=== PATIENT | female | born 1980 | race Caucasian/White ===

== ENCOUNTER 2017-03-15 18:44 | Observation (INO) ==
[2017-03-15] MEDS ORDERED: Ondansetron 4 MG/2 ML VIAL IVP ONE (19:06)
[2017-03-15] MEDS ORDERED: 0.9 % Sodium Chloride 1,000 ML IVC ONE (19:06)
--- NOTE | 2017-03-15 19:10 | Emergency Department Note ---
Disposition Clinical Impression: Intractable vomiting Qualifiers: Vomiting type: cyclical vomiting Nausea presence: with nausea Qualified Code(s) : G43.A1 - Cyclical vomiting, intractable Disposition: Admitted As Inpatient Condition: Good Referrals: Karson Romero DO [Primary Care Provider] - Forms: ED Satisfaction Letter Time of Disposition: 21:49 Nausea/Vomiting/Diarrhea HPI - General Chief complaint: ED Nausea/Vomiting/Diarrhea Stated complaint: vomiting Time Seen by Provider: 03/15/17 18:50 Source: patient Limitations: no limitations Nursing Notes Reviewed: Yes Vital Signs Reviewed: Yes - History of Present Illness HPI Narrative: 36-year-old female who comes in with multiple episodes of nausea vomiting. Patient was seen here 2 days ago for similar complaints and was worked up noted to have a white count of 25.2 was instructed to follow up for recheck of her white count area CT scan was negative for acute findings. Patient does smoke marijuana routinely and it was felt she may have cyclic vomiting syndrome although she's never had that in the past. Pt Subjective Complaint: nausea, vomiting Onset (ago): day(s) Description of emesis: food contents Associated Abdominal Pain: Yes If pain, Location of pain: diffuse Consistency: constant Improves with: nothing Worsens with: vomiting Context: foreign travel Associated symptoms: Reports: myalgias - Related Data Previous Rx's Medication Instructions Recorded Oxycodone HCl/Acetaminophen 1 each PO Q6H PRN #50 tablet 10/14/16 [Percocet 5-325 mg Tablet] HYDROcodone/Acet 5/325 mg [[place] 1 tab PO Q6H PRN #10 tab 11/16/16 5-325 mg] Ondansetron ODT [Zofran ODT] 4 mg SL Q6HR #10 tab.rapdis 11/16/16 Ondansetron ODT [Zofran ODT] 4 mg SL Q4HR #10 tab.rapdis 03/13/17 Promethazine [Phenergan] 12.5 mg RC Q4HR #10 supp.rect 03/13/17 Allergies Allergy/AdvReac Type Severity Reaction Status Date / Time codeine AdvReac Headache Verified 03/13/17 18:02 Penicillins AdvReac Vomiting Verified 03/13/17 18:02 Constitutional: Denies: fever, chills, weakness, weight change Eyes: Denies: eye pain, eye discharge, vision change ENT ED: Denies: ear pain, throat pain, dental pain, hearing loss, epistaxis, congestion, dysphagia Cardiovascular: Denies: chest pain, palpitations, dyspnea on exertion, edema, syncope Respiratory: Denies: cough, dyspnea, wheezes, hemoptysis, stridor Gastrointestinal: Reports: abdominal pain, nausea, vomiting. Denies: diarrhea, constipation, hematemesis, melena, hematochezia Genitourinary: Denies: dysuria, frequency, hematuria, discharge Musculoskeletal: Denies: back pain, neck pain, arthralgia, myalgia Integumentary: Denies: rash, abrasion, lesions Neurological: Denies: headache, weakness, numbness, paresthesias, confusion, abnormal gait, vertigo Psychiatric: Denies: anxiety, depression, suicidal thoughts, homicidal thoughts , auditory hallucinations, visual hallucinations Endocrine: Denies: fatigue Hematological/Lymphatic: Denies: easy bleeding, easy bruising Allergic/Immunologic: Denies: facial swelling, urticaria Past Medical History - Past Medical History Medical history: Reports: no medical history Surgical history: Reports: other Psychiatric history: Reports: ADHD - Social History Smoking Status: Current every day smoker Smokeless Tobacco Status: No Alcohol use: Reports: occasionally Drug use: Reports: marijuana Physical Exam - General Limitations: no limitations General appearance: alert - Head Head exam: atraumatic, normocephalic, normal inspection - Eye Eye exam: Present: normal appearance, PERRL, EOMI - ENT ENT exam: normal exam, normal oropharynx, mucous membranes moist - Neck Neck exam: Present: normal inspection, full ROM, trachea midline - Chest Chest inspection: Present: normal inspection, symmetric chest wall rise - Respiratory Respiratory exam: Present: normal lung sounds bilaterally - Cardiovascular Cardiovascular exam: Present: regular rate, normal rhythm, normal heart sounds - Abdominal Exam Abdominal exam: Present: soft, tenderness. Absent: distention, guarding, rebound, rigidity Abdominal tenderness: Present: diffuse - Extremities Exam Extremities exam: Present: normal inspection, full ROM. Absent: tenderness, pedal edema - Expanded Lower Extremity Exam Neurovascular/Tendon exam: Absent: motor deficit, sensory deficit, tendon deficit - Back Exam Back exam: Present: normal inspection, full ROM. Absent: tenderness - Neurological Exam Neurological exam: Present: alert, oriented X3 - Psychiatric Psychiatric exam: Present: normal affect, normal mood - Skin Skin exam: Present: warm, dry, intact, normal color Course - Reevaluation(s) Reevaluation #1: 36-year-old with persistent nausea vomiting. There is a question whether this is related to cyclic vomiting syndrome. She does have an elevated white count but doesn't appear to have a focus of infection. White count slightly better than it was previously down from 25,000 to about 22,000. Time: 21:48 - Consultations Consultation #1: Discussed with , admit. Time: 21:49 Vital Signs Temperature 98.3 F 03/15/17 18:45 Pulse Rate 64 03/15/17 18:45 Respiratory Rate 16 03/15/17 18:45 Blood Pressure 156/89 03/15/17 18:45 O2 Sat by Pulse Oximetry 100 03/15/17 18:45 Temperature 98.3 F 03/15/17 18:45 Pulse Rate 60 03/15/17 19:24 Respiratory Rate 16 03/15/17 18:45 Blood Pressure 166/96 03/15/17 19:24 O2 Sat by Pulse Oximetry 100 03/15/17 18:45 Oxygen Delivery Oxygen Delivery Room Air Nausea/Vomiting/Diarrhea - Lab Data Result diagrams: 03/15/17 19:17 03/15/17 19:17 Lab Results 03/15/17 03/15/17 03/15/17 Range/Units 19:16 19:17 19:17 WBC 22.4 H (4.3-11.1) K/mcL RBC 5.04 H (3.82-4.97) M/mcL Hgb 15.0 (11.5-15.4) g/dL Hct 44.2 (35.3-44.9) % MCV 87.7 (83.0-100.0) fL MCH 29.8 (28.0-33.3) pg MCHC 33.9 (31.6-35.5) g/dL RDW 13.7 (11.5-14.5) % Plt Count 442 H (140-400) K/mcL MPV 8.3 L (9.4-12.4) fL Immature Gran % 0.7 (0-4) % Seg Neutrophils % 80.6 % Lymphocytes % 13.2 % Monocytes % 5.1 % Eosinophils % 0.0 % Basophils % 0.4 % Neutrophils # 18.0 H (1.6-8.9) K/mcL Lymphocytes # 3.0 (0.6-4.6) K/mcL Monocytes # 1.2 (0.0-1.3) K/mcL Eosinophils # 0.0 (0.0-0.6) K/mcL Basophils # 0.1 (0.0-0.2) K/mcL Sodium 135 L (136-145) mEq/L Potassium 3.4 L (3.5-5.1) mEq/L Chloride 101 (98-107) mEq/L Carbon Dioxide 22 L (23-29) mEq/L BUN 10 (6-20) mg/dL Creatinine 0.58 L (0.60-1.20) mg/dL Est GFR ( Amer) > 60 (> 60) Est GFR (Non-Af Amer) > 60 (> 60) BUN/Creatinine Ratio 17 (6-26) Glucose 100 (70-105) mg/dL Calculated Osmolality 279 L (280-300) Calcium 9.4 (8.6-10.3) mg/dL Lipase 15 (11-82) Units/L Urine Color Yellow (Yellow) Urine Clarity Turbid A (Clear) Urine pH 7.5 (5.0-8.0) pH Units Ur Specific [place] 1.022 (1.010-1.025) Urine Protein Trace (Neg-Trace) mg/dL Urine Glucose (UA) Normal (Normal) mg/dL Urine Ketones 80 H (Negative) mg/dL Urine Blood Negative (Negative) Urine Nitrite Negative (Negative) Urine Bilirubin Negative (Negative) Urine Urobilinogen Normal (Normal) mg/dL Ur Leukocyte Esterase Negative (Negative) Urine Microscopic RBC 0-3 (0-3) per hpf Urine Microscopic WBC 0-3 (0-3) per hpf Ur Squamous Epith Cells Many H (None-Few) per lpf Amorphous Sediment Moderate H (Few) Urine Bacteria None Seen (None-Few) per hpf Hyaline Casts None Seen (None-Few) per lpf Urine Yeast Test Not Performed Ur Culture Indicated? NO (NO)
[2017-03-15 19:23] LABS: Basophils # 0.1 K/mcL (0.0-0.2); Basophils % 0.4 %; Hematocrit 44.2 % (35.3-44.9); Immature Granulocytes % 0.7 % (0-4); Lymphocytes % 13.2 %; Mean Corpuscular HGB Conc 33.9 g/dL (31.6-35.5); Mean Corpuscular Hemoglobin 29.8 pg (28.0-33.3); Mean Corpuscular Volume 87.7 fL (83.0-100.0); Mean Platelet Volume 8.3 fL (9.4-12.4); Monocytes # 1.2 K/mcL (0.0-1.3); Monocytes % 5.1 %; Platelet Count 442 K/mcL (140-400); Red Blood Count 5.04 M/mcL (3.82-4.97); Red Cell Distribution Width 13.7 % (11.5-14.5); Segmented Neutrophils % 80.6 %
[2017-03-15 19:33] LABS: Bilirubin,Urine Negative (Negative); Blood,Urine Negative (Negative); Clarity,Urine Turbid (Clear); Color,Urine Yellow (Yellow); Glucose,Urine (UA) Normal (Normal); Ketones,Urine 80 mg/dL (Negative); Leukocyte Esterase,Urine Negative (Negative); Nitrite,Urine Negative (Negative); PH,Urine 7.5 pH Units (5.0-8.0); Protein,Urine Trace mg/dL (Neg-Trace); Specific Gravity,Urine 1.022 (1.010-1.025); Urobilinogen,Urine Normal (Normal)
[2017-03-15 19:34] LABS: Bacteria,Urine None Seen per hpf (None-Few); Hyaline Casts,Urine None Seen per lpf (None-Few); RBC,Urine 0-3 per hpf (0-3); Squamous Epithelial Cell,Urine Many per lpf (None-Few); WBC,Urine 0-3 per hpf (0-3)
[2017-03-15 19:36] LABS: BUN/Creatinine Ratio 17 (6-26); Blood Urea Nitrogen 10 mg/dL (6-20); Calcium 9.4 mg/dL (8.6-10.3); Carbon Dioxide 22 mEq/L (23-29); Chloride 101 mEq/L (98-107); Glucose 100 mg/dL (70-105); Lipase 15 Units/L (11-82); Osmolality,Calculated 279 (280-300); Potassium 3.4 mEq/L (3.5-5.1); Sodium 135 mEq/L (136-145); eGFR For African Americans > 60 (> 60); eGFR For Non-African Americans > 60 (> 60)
[2017-03-15 19:51] LABS: Amorphous Sediment,Urine Moderate (Few)
[2017-03-15] MEDS ORDERED: Haloperidol Lactate 5 MG/ML VIAL IVP ONE (21:07)
[2017-03-15] MEDS ORDERED: 0.9 % Sodium Chloride 1,000 ML IVC SCH (23:45)
[2017-03-15] MEDS ORDERED: *HR* Promethazine 25 MG/ML VIAL IVP PRN (23:49)
[2017-03-15] MEDS ORDERED: Naloxone 0.4 MG/ML INJ IVP PRN (23:49)
[2017-03-15] MEDS ORDERED: Ondansetron ODT 4 MG TAB.RAPDIS SL PRN (23:49)
--- NOTE | 2017-03-15 23:52 | Internal Med History&Physical ---
<Murali Aldrich - Last Filed: 03/16/17 00:09> Date of Encounter: 03/16/17 Time of Encounter: 23:00 Assessment and Plan (1) Intractable vomiting Current visit: Yes Status: Acute Refractory to Zofran 4mg, Phenergan 12.5mg. Pt responded to Haldol 2mg, consistent with last encounter 2 days ago. Will keep NPO except for ice chips, with normal saline at 100mL/hr. Will monitor for EPS symptoms, holding Haldol unless pt symptoms worsen without resolution with Zofran/Phenergan overnight. Discussed consideration for cannabinoid hyperemesis with patient. Qualifiers: Vomiting type: cyclical vomiting Nausea presence: with nausea Qualified Code(s): G43.A1 - Cyclical vomiting, intractable (2) Leukocytosis Current visit: Yes Status: Acute CBC with differential shows neutrophil predominant leukocytosis. Likely stress reaction to vomiting. Leukocytosis has been documented in multiple visits, this may be due to each visit pt having an physiologically appropriate leukemoid reaction, however will order peripheral smear. (3) DVT prophylaxis Current visit: Yes Status: Acute SQ heparin 5000U q12H. Internal Medicine - H&P: HPI Admitted From: Emergency Dept Plans for Post Hospital Care: Home History of present illness: Ms. Lanier is a 36 year old female who presents to ED with nausea and multiple episodes of vomiting. Pt seen in ED 2 days ago for similar symptoms, vomiting refractory to zofran and phenergan, with resolution of symptoms after receiving 2mg Haldol. Pt currently denies tremor, or irregular jerking movements. She states this is the first time she has had unremitting vomiting. ED workup shows white count of 22 down from 25, negative CT abdomen and CXR. Pt received zofran and phenergan, pt did not respond so haldol 2mg was given. Pt has stopped vomitting for 3 hours since haldol administration at the time of this encounter. Past Med Surg Social Fam HX - Past Medical History Medical history: no medical history Psychiatric history: ADHD - Past Surgical History Surgical History: other - Social History Smoking Status: Current every day smoker Smokeless Tobacco Status: No Alcohol use: occasionally Drug use: marijuana Internal Medicine - H&P: Meds Oxycodone HCl/Acetaminophen [Percocet 5-325 mg Tablet] 1 each PO Q6H PRN #50 tablet 10/14/16 [Rx] HYDROcodone/Acet 5/325 mg [[place] 5-325 mg] 1 tab PO Q6H PRN #10 tab 11/16/16 [Rx ] Ondansetron ODT [Zofran ODT] 4 mg SL Q6HR #10 tab.rapdis 11/16/16 [Rx] Ondansetron ODT [Zofran ODT] 4 mg SL Q4HR #10 tab.rapdis 03/13/17 [Rx] Promethazine [Phenergan] 12.5 mg RC Q4HR #10 supp.rect 03/13/17 [Rx] 3 Allergy/AdvReac Type Severity Reaction Status Date / Time codeine AdvReac Headache Verified 03/13/17 18:02 Penicillins AdvReac Vomiting Verified 03/13/17 18:02 All Systems PM: A 10-system review of systems was performed and is negative for pertinent findings except as documented above in the HPI. - Constitutional Vitals: Temp Pulse Resp BP Pulse Ox 98.3 F 60 18 112/69 100 03/15/17 18:45 03/15/17 19:24 03/15/17 23:23 03/15/17 23:23 03/15/17 18:45 General appearance: Present: A&O X 3, no acute distress - ENT ENT exam: Present: mucous membranes moist - Neck Neck exam general surgery: Present: full ROM. Absent: nuchal rigidity - Cardiovascular Cardiovascular exam: Present: RRR, +S1, +S2. Absent: tachycardia - Neurological Exam Neurological exam: Present: no focal deficits Additional comments: no tremor, bradykinesia, or akathisia - Psychiatric Psychiatric exam: Present: normal affect Internal Med - H&P Results - Labs CBC & Chem 7: 03/15/17 19:17 03/15/17 19:17 <Nicolette Osullivan - Last Filed: 03/16/17 01:54> Date of Encounter: 03/16/17 Time of Encounter: 01:00 Internal Medicine - H&P: HPI Chief complaint: Intractable vomiting Admitted From: Emergency Dept Plans for Post Hospital Care: Home History of present illness: Ms. Lanier is a 36 year old female All Systems PM: A 10-system review of systems was performed and is negative for pertinent findings except as documented above in the HPI. - Constitutional Vitals: Temp Pulse Resp BP Pulse Ox 98.0 F 54 20 119/76 95 03/15/17 23:52 03/15/17 23:52 03/15/17 23:52 03/15/17 23:52 03/15/17 23:52 Internal Med - H&P Results - Labs CBC & Chem 7: 03/15/17 19:17 03/15/17 19:17 - Attending Attestation I examined this patient and my medical decision-making was reviewed with the Resident Physician, Murali Aldrich. I agree with the documented findings, disposition and treatment plan as described except to the extent set forth below. 36-year-old female patient with no significant past medical history presented to the ER with complaints of intractable nausea and vomiting going on for 3 days. Was previously seen in the ER and was discharged home with Zofran and Phenergan. No improvement in her symptoms since then. Has history of chronic marijuana use. Also reports minimal blood in her emesis. Complains of epigastric abdominal discomfort. Patient says that she has previously had C. difficile but does not report any diarrhea at this time. On examination patient is awake alert and oriented. Heart sounds are normal. Mild epigastric tenderness. Labs show hypokalemia and hyponatremia. Ketones present in urine. Intractable nausea and vomiting: Concern for cannabinoid hyperemesis syndrome. Will treat symptomatically with antiemetics. IV fluids. Replete electrolytes. Leukocytosis: Patient has had chronic leukocytosis. Neutrophil predominant. Will check peripheral smear.
[2017-03-16] MEDS ORDERED: 0.9 % Sodium Chloride w KCl 20 MEQ/1,000 ML MLS IVC SCH (02:00)
[2017-03-16 06:37] LABS: Basophils # 0.1 K/mcL (0.0-0.2); Basophils % 0.7 %; Eosinophils # 0.1 K/mcL (0.0-0.6); Eosinophils % 0.6 %; Hematocrit 35.6 % (35.3-44.9); Immature Granulocytes % 0.4 % (0-4); Lymphocytes # 5.8 K/mcL (0.6-4.6); Lymphocytes % 32.2 %; Mean Corpuscular Hemoglobin 29.7 pg (28.0-33.3); Mean Corpuscular Volume 87.5 fL (83.0-100.0); Mean Platelet Volume 8.8 fL (9.4-12.4); Monocytes # 1.4 K/mcL (0.0-1.3); Monocytes % 7.9 %; Neutrophils # 10.5 K/mcL (1.6-8.9); Platelet Count 360 K/mcL (140-400); Red Blood Count 4.07 M/mcL (3.82-4.97); Red Cell Distribution Width 13.8 % (11.5-14.5); Segmented Neutrophils % 58.2 %
[2017-03-16 06:38] LABS: Hemoglobin 12.1 g/dL (11.5-15.4)
[2017-03-16 06:44] LABS: BUN/Creatinine Ratio 17 (6-26); Blood Urea Nitrogen 9 mg/dL (6-20); Calcium 8.5 mg/dL (8.6-10.3); Carbon Dioxide 25 mEq/L (23-29); Chloride 108 mEq/L (98-107); Glucose 75 mg/dL (70-105); Osmolality,Calculated 285 (280-300); Potassium 3.3 mEq/L (3.5-5.1); Sodium 139 mEq/L (136-145); eGFR For African Americans > 60 (> 60); eGFR For Non-African Americans > 60 (> 60)
[2017-03-16 12:54] VITALS: BP 144/88
--- NOTE | 2017-03-16 16:04 | Discharge Summary ---
Date of Encounter: 03/16/17 Time of Encounter: 16:02 - Discharge Diagnosis (1) Intractable vomiting Priority: Primary Status: Resolved Comments: refractory to Zofran 4mg, Phenergan 12.5mg. Pt responded to Haldol 2mg, consistent with last encounter 2 days ago. Stool for c.diff negative. ABD CT non-acute. Nausea and vomiting resolved prior to discharge and she was tolerating regular diet. Differentials include gastro-enteritis, cannabinoid hyperemesis. Marijuana cessation advised but not likely. Qualifiers: Vomiting type: cyclical vomiting Nausea presence: with nausea Qualified Code(s): G43.A1 - Cyclical vomiting, intractable (2) Leukocytosis Priority: Primary Status: Acute Comments: CBC with differential shows neutrophil predominant leukocytosis. Likely stress reaction to vomiting. Leukocytosis has been documented in multiple visits, may be due to each visit pt having a physiologically appropriate leukemoid reaction ; peripheral smear pending at time of discharge. Recommend repeat CBC with PCP in one week Qualifiers: Leukocytosis type: leukemoid reaction Qualified Code(s): D72.823 - Leukemoid reaction - Discharge Medications Home Medications: Ondansetron ODT [Zofran ODT] 4 mg SL Q4HR #10 tab.rapdis 03/13/17 [Rx] Promethazine [Phenergan] 12.5 mg RC Q4HR #10 supp.rect 03/13/17 [Rx] FLUoxetine HCl [PROzac] 20 mg PO DAILY 03/16/17 [History] Propranolol [Inderal] 20 mg PO BID 03/16/17 [History] Allergies/Adverse Reactions: 3 Allergy/AdvReac Type Severity Reaction Status Date / Time codeine AdvReac Headache Verified 03/13/17 18:02 Penicillins AdvReac Vomiting Verified 03/13/17 18:02 Date of admission: 03/15/17 22:10 Primary care physician: Karson Romero DO Discharging clinician: Joellen Reyes Anticipated date of discharge: 03/16/17 - Patient Status Disposition: Home, Self-Care Condition: Good Functional capacity at discharge: independent ambulation Overall status at discharge: patient is back to baseline - Discharge Instructions Instructions: Leukocytosis (DC), Acute Nausea and Vomiting, Residential Director ( GEN) Follow Up With: Karson Romero DO [Primary Care Provider] - (Please call for follow-up appointment within 24 hours or the next business day. You should have a repeat CBC within a week. Please also follow up with the peripheral blood smear that was pending at time of discharge) - Diet and Activity Activity: increase activity as tolerated Diet: advance to your usual diet Interval History: Seen and examined at bedside, patient is new to me. Information obtained from chart review and patient report. Patient says she feels significantly better; no further nausea vomiting. She is tolerating a regular diet. She reports having surgery a couple months ago and subsequently had C. difficile. She feels symptoms now are similar to when she had C. difficile. Stool checked for C. difficile which was negative. Patient said she was back to baseline and wanted discharged home. Advised to follow-up with PCP for repeat CBC and peripheral smear follow-up. Hospital course: See assessment and plan for hospital course - Time Spent with Patient Total time spent providing and/or coordinating discharge services: - Constitutional Vitals: Temp Pulse Resp BP Pulse Ox 99.3 F 77 18 144/88 100 03/16/17 12:53 03/16/17 12:53 03/16/17 12:53 03/16/17 12:53 03/16/17 12:53 General appearance: Present: A&O X 3, no acute distress - Head Head exam: Present: atraumatic, normocephalic - Eye Eye exam: Present: PERRL, conjuntiva pink, sclera anicteric Pupils: Present: PERRL - Neck Neck exam general surgery: Present: supple, trachea midline. Absent: lymphadenopathy - Respiratory Respiratory exam: Present: CTAB. Absent: accessory muscle use, rales, rhonchi, wheezes - Cardiovascular Cardiovascular exam: Present: RRR, +S1, +S2. Absent: diastolic murmur, gallop, rubs, systolic murmur - GI/Abdominal GI/Abdominal exam: Present: normal bowel sounds, soft, no peritoneal signs. Absent: distended, tenderness - Extremities Exam Extremities exam: Present: warm, radial pulses palpable and symmetrical. Absent : calf tenderness, cyanotic, pedal edema - Neurological Exam Neurological exam: Present: CN II-XII intact, oriented X3, no focal deficits. Absent: pronater drift, facial droop, speech deficit - Skin Skin exam: Present: dry, intact
== END 2017-03-16 16:26 | disposition home or self-care (01) ==
LOC: 3BNU 18:44 → EMEROO 18:44 → 3BNU 23:26
PROVIDERS: ADMIT Family Medicine; ATTEND Registered Nurse

== ENCOUNTER 2017-06-01 17:22 | Inpatient (IN) ==
[2017-06-01] MEDS ORDERED: 0.9 % Sodium Chloride 1,000 ML IVC ONE ×2 (18:08→19:46)
[2017-06-01] MEDS ORDERED: *HR* Promethazine 25 MG/ML VIAL IVP ONE (18:09)
[2017-06-01] MEDS ORDERED: Hyoscyamine 0.5 MG/ML MLS IVP ONE (18:10)
[2017-06-01] MEDS ORDERED: Pantoprazole 40 MG VIAL IVP ONE (18:10)
--- NOTE | 2017-06-01 18:14 | Emergency Department Note ---
Disposition Clinical Impression: Esophagitis, Elevated troponin Sepsis Qualifiers: Sepsis type: sepsis due to unspecified organism Qualified Code(s): A41.9 - Sepsis, unspecified organism Disposition: Admitted As Inpatient Condition: Fair Time of Disposition: 20:46 General Adult HPI - General Chief complaint: ED General Medical Stated complaint: N/V, low BS, CP Time Seen by Provider: 06/01/17 17:49 Source: patient Mode of arrival: ambulatory Limitations: no limitations Nursing Notes Reviewed: Yes Vital Signs Reviewed: Yes - History of Present Illness HPI Narrative: 36-year-old female with history of anxiety depression presents for evaluation of multiple complaints. Patient states she has been having nausea and vomiting for the past 3 days. Denies any diarrhea. Patient also notes some chest pain over the past 3 days as well. Denies any shortness of breath. Patient states she aches everywhere. Patient states that she has not been able to keep anything down with Zofran. Patient does report subjective fevers. Patient also became concerned when she checked her blood sugars she said it was 50. Patient denies having history of diabetes or taking any medications. Patient reports that she has had her gallbladder removed. Denies any dysuria. Patient denies possibility . Pain Scale: 8 - Related Data Home Medications Medication Instructions Recorded Confirmed FLUoxetine HCl [PROzac] 20 mg PO DAILY 03/16/17 03/16/17 Propranolol [Inderal] 20 mg PO BID 03/16/17 03/16/17 Previous Rx's Medication Instructions Recorded Ondansetron ODT [Zofran ODT] 4 mg SL Q4HR #10 tab.rapdis 03/13/17 Promethazine [Phenergan] 12.5 mg RC Q4HR #10 supp.rect 03/13/17 Allergies Allergy/AdvReac Type Severity Reaction Status Date / Time codeine AdvReac Headache Verified 03/13/17 18:02 Penicillins AdvReac Vomiting Verified 03/13/17 18:02 All systems ED: reviewed and negative except as stated. Constitutional: Reports: fever Cardiovascular: Reports: chest pain. Denies: palpitations Respiratory: Denies: cough, dyspnea, wheezes Gastrointestinal: Reports: abdominal pain, nausea, vomiting. Denies: diarrhea Past Medical History - Past Medical History Source: patient Medical history: Reports: no medical history Surgical history: Reports: other Psychiatric history: Reports: anxiety, ADHD, depression - Social History Smoking Status: Current every day smoker Smokeless Tobacco Status: No Alcohol use: Reports: occasionally Drug use: Reports: marijuana Physical Exam - General Limitations: no limitations General appearance: alert, in no apparent distress - Head Head exam: atraumatic, normocephalic, normal inspection - Eye Eye exam: Present: normal appearance, PERRL, EOMI - ENT ENT exam: normal exam, normal oropharynx, mucous membranes moist - Neck Neck exam: Present: normal inspection - Chest Chest inspection: Present: normal inspection - Respiratory Respiratory exam: Present: normal lung sounds bilaterally. Absent: respiratory distress - Cardiovascular Cardiovascular exam: Present: regular rate, normal rhythm - Abdominal Exam Abdominal exam: Present: soft, Non-Tender. Absent: distention, guarding, rebound - Extremities Exam Extremities exam: Present: normal inspection. Absent: pedal edema - Expanded Lower Extremity Exam Neurovascular/Tendon exam: Present: normal capillary refill - Neurological Exam Neurological exam: Present: alert, oriented X3 - Skin Skin exam: Present: warm, dry, intact, normal color Course Course Narrative: Patient will get basic labs, screening EKG. Patient is low risk for PE however has remained tachycardic. Patient will receive a d-dimer. - Reevaluation(s) Reevaluation #1: During the ED evaluation the patient's heart rate did increase in the 150s. Considers a sinus tach versus atrial flutter. It is unclear whether this was readily correlated with administration of medications. Patient does take propranolol. Patient will be treated with Lopressor. Time: 18:46 Reevaluation #2: HR is down to 115 with 1 dose of lopressor. Time: 18:53 Reevaluation #3: Patient's updated on plan of care. Given the patient's white count and tachycardia. The patient does meet surgical criteria. Patient was started on broad-spectrum antibiotics. Disposition will be admission. Awaiting CT imaging studies. Time: 19:45 Vital Signs Temperature 99 F 06/01/17 17:38 Pulse Rate 108 06/01/17 17:38 Respiratory Rate 18 06/01/17 17:38 Blood Pressure 146/103 06/01/17 17:38 O2 Sat by Pulse Oximetry 98 06/01/17 17:38 Temperature 98.7 F 06/01/17 21:33 Pulse Rate 85 03/18/18 21:33 Respiratory Rate 16 06/01/17 21:33 Blood Pressure 158/102 06/01/17 21:33 O2 Sat by Pulse Oximetry 98 06/01/17 21:37 Oxygen Delivery Oxygen Delivery Room Air Medical Decision Making - [facility] Narrative Medical decision making narrative: Patient presents with multiple complains per patient's been having nausea and vomiting for the past 3 days. Patient also having chest pain. Given the patient's initial evaluation she received basic labs which were markedly abnormal prompting further investigation. Patient had an in increasing white count and measures criteria and was broad-spectrum antibiotics. Patient abnormalities likely related to her persistent nausea and vomiting. Patient was found to have esophagitis likely explaining her chest pain. Patient had a mild elevation of troponin however the patient was intermittently tachycardic during the ED course which improved with Lopressor. Patient was not heparinized due to concerns of possible esophagitis and anticoagulation the patient is not complaining of any chest pain currently. The patient was given Protonix. Patient will be admitted to the hospital service for further evaluation monitoring. - Lab Data Lab results reviewed: Yes I reviewed the patient's lab results. Result diagrams: 06/01/17 18:09 06/01/17 18:09 Lab Results 06/01/17 06/01/17 06/01/17 Range/Units 18:09 18:09 18:09 WBC 28.7 H (4.3-11.1) K/mcL RBC 5.70 H (3.82-4.97) M/mcL Hgb 16.9 H (11.5-15.4) g/dL Hct 48.9 H (35.3-44.9) % MCV 85.8 (83.0-100.0) fL MCH 29.6 (28.0-33.3) pg MCHC 34.6 (31.6-35.5) g/dL RDW 13.3 (11.5-14.5) % Plt Count 558 H (140-400) K/mcL MPV 8.6 L (9.4-12.4) fL Immature Gran % 0.7 (0-4) % Seg Neutrophils % 76.2 % Lymphocytes % 15.0 % Monocytes % 7.7 % Eosinophils % 0.1 % Basophils % 0.3 % Neutrophils # 21.9 H (1.6-8.9) K/mcL Lymphocytes # 4.3 (0.6-4.6) K/mcL Monocytes # 2.2 H (0.0-1.3) K/mcL Eosinophils # 0.0 (0.0-0.6) K/mcL Basophils # 0.1 (0.0-0.2) K/mcL Platelet Estimate Increased H (Normal) D-Dimer (0-500) ng/mLFEU Sodium (136-145) mEq/L Potassium (3.5-5.1) mEq/L Chloride (98-107) mEq/L Carbon Dioxide (23-29) mEq/L BUN (6-20) mg/dL Creatinine (0.60-1.20) mg/dL Est GFR ( Amer) (> 60) Est GFR (Non-Af Amer) (> 60) BUN/Creatinine Ratio (6-26) Glucose (70-105) mg/dL Calculated Osmolality (280-300) Lactic Acid (0.5-2.2) mmol/L Calcium (8.6-10.3) mg/dL Magnesium (1.6-2.6) mg/dL Total Bilirubin (0.3-1.0) mg/dL Direct Bilirubin (0.0-0.2) mg/dL Indirect Bilirubin (0.0-1.2) mg/dL AST (13-39) Units/L ALT (7-52) Units/L Alkaline Phosphatase (34-104) Units/L Troponin I (< 0.04) ng/mL Serum Total Protein (6.4-8.9) g/dL Albumin (3.5-5.7) g/dL Globulin (2.4-3.5) g/dL Albumin/Globulin Ratio (1.1-2.2) Lipase (11-82) Units/L TSH (0.340-5.600) mcIU/mL Urine Color Dark Yellow (Yellow) Urine Clarity Cloudy A (Clear) Urine pH 6.5 (5.0-8.0) pH Units Ur Specific [place] > 1.030 H (1.010-1.025) Urine Protein 30 H (Neg-Trace) mg/dL Urine Glucose (UA) Normal (Normal) mg/dL Urine Ketones 40 H (Negative) mg/dL Urine Blood Negative (Negative) Urine Nitrite Negative (Negative) Urine Bilirubin Negative (Negative) Urine Urobilinogen Normal (Normal) mg/dL Ur Leukocyte Esterase Negative (Negative) Urine Microscopic WBC 5-15 H (0-3) per hpf Ur Squamous Epith Cells Many H (None-Few) per lpf Urine Bacteria Moderate H (None-Few) per hpf Hyaline Casts Few (None-Few) per lpf Ur Culture Indicated? NO (NO) Urine Test Negative (Negative) Urine Opiates Screen (Sqsmsb=575) ng/mL Ur Barbiturates Screen (Svcqbr=083) ng/mL Ur Phencyclidine Scrn (Cutoff=25) ng/mL Ur Amphetamines Screen (Urtvna=2212) ng/mL U Benzodiazepines Scrn (Marblf=975) ng/mL Urine Cocaine Screen (Cutoff= 300) ng/mL U Marijuana (THC) Screen (Cutoff = 50) ng/mL 06/01/17 06/01/17 06/01/17 Range/Units 18:09 18:25 18:40 WBC (4.3-11.1) K/mcL RBC (3.82-4.97) M/mcL Hgb (11.5-15.4) g/dL Hct (35.3-44.9) % MCV (83.0-100.0) fL MCH (28.0-33.3) pg MCHC (31.6-35.5) g/dL RDW (11.5-14.5) % Plt Count (140-400) K/mcL MPV (9.4-12.4) fL Immature Gran % (0-4) % Seg Neutrophils % % Lymphocytes % % Monocytes % % Eosinophils % % Basophils % % Neutrophils # (1.6-8.9) K/mcL Lymphocytes # (0.6-4.6) K/mcL Monocytes # (0.0-1.3) K/mcL Eosinophils # (0.0-0.6) K/mcL Basophils # (0.0-0.2) K/mcL Platelet Estimate (Normal) D-Dimer 2246 H (0-500) ng/mLFEU Sodium 134 L (136-145) mEq/L Potassium 3.3 L (3.5-5.1) mEq/L Chloride 96 L (98-107) mEq/L Carbon Dioxide 27 (23-29) mEq/L BUN 13 (6-20) mg/dL Creatinine 0.57 L (0.60-1.20) mg/dL Est GFR ( Amer) > 60 (> 60) Est GFR (Non-Af Amer) > 60 (> 60) BUN/Creatinine Ratio 23 (6-26) Glucose 117 H (70-105) mg/dL Calculated Osmolality 279 L (280-300) Lactic Acid (0.5-2.2) mmol/L Calcium 9.9 (8.6-10.3) mg/dL Magnesium 2.1 (1.6-2.6) mg/dL Total Bilirubin 0.9 (0.3-1.0) mg/dL Direct Bilirubin 0.2 (0.0-0.2) mg/dL Indirect Bilirubin 0.7 (0.0-1.2) mg/dL AST 47 H (13-39) Units/L ALT 68 H (7-52) Units/L Alkaline Phosphatase 104 (34-104) Units/L Troponin I (< 0.04) ng/mL Serum Total Protein 7.9 (6.4-8.9) g/dL Albumin 4.7 (3.5-5.7) g/dL Globulin 3.2 (2.4-3.5) g/dL Albumin/Globulin Ratio 1.5 (1.1-2.2) Lipase 11 (11-82) Units/L TSH 1.201 (0.340-5.600) mcIU/mL Urine Color (Yellow) Urine Clarity (Clear) Urine pH (5.0-8.0) pH Units Ur Specific [place] (1.010-1.025) Urine Protein (Neg-Trace) mg/dL Urine Glucose (UA) (Normal) mg/dL Urine Ketones (Negative) mg/dL Urine Blood (Negative) Urine Nitrite (Negative) Urine Bilirubin (Negative) Urine Urobilinogen (Normal) mg/dL Ur Leukocyte Esterase (Negative) Urine Microscopic WBC (0-3) per hpf Ur Squamous Epith Cells (None-Few) per lpf Urine Bacteria (None-Few) per hpf Hyaline Casts (None-Few) per lpf Ur Culture Indicated? (NO) Urine Test (Negative) Urine Opiates Screen Negative (Qnbkes=158) ng/mL Ur Barbiturates Screen Negative (Devljc=625) ng/mL Ur Phencyclidine Scrn Negative (Cutoff=25) ng/mL Ur Amphetamines Screen Negative (Mpiplp=0056) ng/mL U Benzodiazepines Scrn Negative (Rfsckc=954) ng/mL Urine Cocaine Screen Negative (Cutoff= 300) ng/mL U Marijuana (THC) Screen Positive H (Cutoff = 50) ng/mL 06/01/17 06/01/17 Range/Units 19:51 19:51 WBC (4.3-11.1) K/mcL RBC (3.82-4.97) M/mcL Hgb (11.5-15.4) g/dL Hct (35.3-44.9) % MCV (83.0-100.0) fL MCH (28.0-33.3) pg MCHC (31.6-35.5) g/dL RDW (11.5-14.5) % Plt Count (140-400) K/mcL MPV (9.4-12.4) fL Immature Gran % (0-4) % Seg Neutrophils % % Lymphocytes % % Monocytes % % Eosinophils % % Basophils % % Neutrophils # (1.6-8.9) K/mcL Lymphocytes # (0.6-4.6) K/mcL Monocytes # (0.0-1.3) K/mcL Eosinophils # (0.0-0.6) K/mcL Basophils # (0.0-0.2) K/mcL Platelet Estimate (Normal) D-Dimer (0-500) ng/mLFEU Sodium (136-145) mEq/L Potassium (3.5-5.1) mEq/L Chloride (98-107) mEq/L Carbon Dioxide (23-29) mEq/L BUN (6-20) mg/dL Creatinine (0.60-1.20) mg/dL Est GFR ( Amer) (> 60) Est GFR (Non-Af Amer) (> 60) BUN/Creatinine Ratio (6-26) Glucose (70-105) mg/dL Calculated Osmolality (280-300) Lactic Acid 0.9 (0.5-2.2) mmol/L Calcium (8.6-10.3) mg/dL Magnesium (1.6-2.6) mg/dL Total Bilirubin (0.3-1.0) mg/dL Direct Bilirubin (0.0-0.2) mg/dL Indirect Bilirubin (0.0-1.2) mg/dL AST (13-39) Units/L ALT (7-52) Units/L Alkaline Phosphatase (34-104) Units/L Troponin I 0.06 H* (< 0.04) ng/mL Serum Total Protein (6.4-8.9) g/dL Albumin (3.5-5.7) g/dL Globulin (2.4-3.5) g/dL Albumin/Globulin Ratio (1.1-2.2) Lipase (11-82) Units/L TSH (0.340-5.600) mcIU/mL Urine Color (Yellow) Urine Clarity (Clear) Urine pH (5.0-8.0) pH Units Ur Specific [place] (1.010-1.025) Urine Protein (Neg-Trace) mg/dL Urine Glucose (UA) (Normal) mg/dL Urine Ketones (Negative) mg/dL Urine Blood (Negative) Urine Nitrite (Negative) Urine Bilirubin (Negative) Urine Urobilinogen (Normal) mg/dL Ur Leukocyte Esterase (Negative) Urine Microscopic WBC (0-3) per hpf Ur Squamous Epith Cells (None-Few) per lpf Urine Bacteria (None-Few) per hpf Hyaline Casts (None-Few) per lpf Ur Culture Indicated? (NO) Urine Test (Negative) Urine Opiates Screen (Sncaux=276) ng/mL Ur Barbiturates Screen (Jnweet=985) ng/mL Ur Phencyclidine Scrn (Cutoff=25) ng/mL Ur Amphetamines Screen (Isngcj=5508) ng/mL U Benzodiazepines Scrn (Klflaa=163) ng/mL Urine Cocaine Screen (Cutoff= 300) ng/mL U Marijuana (THC) Screen (Cutoff = 50) ng/mL - Radiology Data Radiology results reviewed: Yes I reviewed the patient's radiology results. Chest X-Ray 06/01/17 18:14 IMPRESSION: Clear lungs. D/ / Dustin Lind MD / Dustin Lind MD Interpreting Provider: Dustin Lind MD Chest X-Ray 06/01/17 18:14 IMPRESSION: Clear lungs. D/ / Dustin Lind MD / Dustin Lind MD Interpreting Provider: Dustin Lind MD Abdomen/Pelvis CT 06/01/17 19:12 IMPRESSION: 1. Diffuse mural thickening involving the esophagus, with a fluid-filled, patulous appearance. This is concerning for esophagitis, with dysmotility. Correlate clinically. Consider direct visualization. 2. No evidence of pulmonary embolism or aortic dissection. 3. Right adnexal cyst measuring 3.7 cm. Based upon the most recent recommendations, this is almost certainly benign and no further follow-up is necessary. Nonetheless, it can be symptomatic. RECOMMENDATIONS: Managing Incidental Adnexal Cystic Mass by CT or MR Benign cyst: Premenopausal (< or equal to 50 years if LMP unknown) < or equal to 5 cm: no follow up >5 cm: US in 6-12 weeks > or equal to 10 cm: US promptly Reference: Berland et al. Managing Incidental Findings on Abdominal CT: White Paper of the ACR Incidental Findings Committee. J Am Jose Luis Radiol 2010;7:754-773 D/ / Peter Rodriguez MD / Peter Rodriguez MD Interpreting Provider: Peter Rordiguez MD Chest CTA 06/01/17 19:12 IMPRESSION: 1. Diffuse mural thickening involving the esophagus, with a fluid-filled, patulous appearance. This is concerning for esophagitis, with dysmotility. Correlate clinically. Consider direct visualization. 2. No evidence of pulmonary embolism or aortic dissection. 3. Right adnexal cyst measuring 3.7 cm. Based upon the most recent recommendations, this is almost certainly benign and no further follow-up is necessary. Nonetheless, it can be symptomatic. RECOMMENDATIONS: Managing Incidental Adnexal Cystic Mass by CT or MR Benign cyst: Premenopausal (< or equal to 50 years if LMP unknown) < or equal to 5 cm: no follow up >5 cm: US in 6-12 weeks > or equal to 10 cm: US promptly Reference: Berland et al. Managing Incidental Findings on Abdominal CT: White Paper of the ACR Incidental Findings Committee. J Am Jose Luis Radiol 2010;7:[id number] D/ / Peter Rodriguez MD / Peter Rodriguez MD Interpreting Provider: Peter Rodriguez MD - EKG Data EKG #1 EKG attestation: Yes I reviewed and interpreted this EKG. EKG shows normal: sinus rhythm Rate: tachycardia Rhythm: NSR [place]/QRS: normal Interpretation: no acute changes, nonspecific ST-T wave changes EKG #2 EKG attestation: Yes I reviewed and interpreted this EKG. EKG shows normal: sinus rhythm Rate: tachycardia Rhythm: NSR, A. flutter [place]/QRS: normal T wave inversions noted in: II, v4, v5, v6 Interpretation: nonspecific ST-T wave changes EKG #3 EKG attestation: Yes I reviewed and interpreted this EKG. EKG shows normal: sinus rhythm Rate: tachycardia Rhythm: NSR [place]/QRS: normal P waves: LAE Interpretation: no acute changes Critical Care Time Critical Care Time: Yes Total Critical Care Time: 35 Attestation: Critical care time 35 minutes managing patient's intractable vomiting and an elevated troponin. S.B.Laura - Karthik.Nataly Situation: Demographics Background: Presenting Complaint Assessment: Vital Signs, Course and respsone to treatment, Patient/Family Expectation Recommendation: Barrier(s) to disposition, Recommendation based on pending studies, treatments, or consults SJames Report Given to: Dr. Ben Dow Repor Time: 20:44 Attestation Statement - Attestation Attestation: Patient was seen with resident physician. I reviewed the history, physical, assessment and plan, and agree with the findings. I also personally evaluated this patient and had [id number] time with this patient. 36-year-old female presents to the emergency department with variety of complaints. Chief among sees her nausea and vomiting. She says she has been able to keep anything down. Resulting from this she feels he has chest and esophageal and throat pain because of the continued vomiting. Chest pain is described as sharp or burning sensation with intermittent. Abdomen is diffusely tender per report. And she has not had diarrhea. Patient has subjective fevers. She been taking Zofran at home without relief. Ultimately this prompted her visit to the ER. Remainder review of systems reviewed and negative except as stated above. Physical exam. Vital signs were stable. ENT is unremarkable. Heart and lungs were normal. Chest wall stable without tenderness. Abdomen is soft no guarding rigidity. Diffusely tender. Neurologically patient is alert and moves all extremities. Psych patient does have a flat affect. Skin no obvious rashes. ED course we will do a workup for nausea vomiting diarrhea also we will check some things out for the chest. I do not think this is cardiac in nature and it is more related to her continued retching. We will got a get the vomiting under control and check to make sure she has no electrolyte abnormalities. She did report glucose of 50 prior to coming in. Hemodynamically otherwise she is stable. Laboratory testing revealed a variety normalities including a markedly elevated white blood cell count in addition to a markedly elevated d-dimer. These prompted several tests including CT of the chest which did not reveal PE but did reveal pretty substantial esophagitis. Also CT scan of the abdomen and pelvis which did not reveal other acute injury. Patient did additionally seem to have urinary tract infection as well. She met some serious criteria for sepsis and she was started on the protocol including broad-spectrum antibiotics. Anticoagulation was not started other than aspirin and this was discussed with the hospitalist. She was improving throughout her stay but clearly needed some time for bowel rest and to get that esophagitis to resolve. Hospitalist was notified and admission was arranged. Critical care time was 35 minutes. I agree with resident physician assessment and plan.
[2017-06-01] MEDS ORDERED: *HR* Metoprolol 5 MG/5 ML VIAL IVP ONE (18:41)
[2017-06-01] MEDS ORDERED: *HR* Metoprolol 5 MG/5 ML VIAL IVP PRN ×2 (18:45→22:13)
[2017-06-01 18:55] LABS: Basophils # 0.1 K/mcL (0.0-0.2); Basophils % 0.3 %; Eosinophils % 0.1 %; Hematocrit 48.9 % (35.3-44.9); Hemoglobin 16.9 g/dL (11.5-15.4); Immature Granulocytes % 0.7 % (0-4); Lymphocytes # 4.3 K/mcL (0.6-4.6); Mean Corpuscular HGB Conc 34.6 g/dL (31.6-35.5); Mean Corpuscular Hemoglobin 29.6 pg (28.0-33.3); Mean Corpuscular Volume 85.8 fL (83.0-100.0); Mean Platelet Volume 8.6 fL (9.4-12.4); Monocytes # 2.2 K/mcL (0.0-1.3); Monocytes % 7.7 %; Neutrophils # 21.9 K/mcL (1.6-8.9); Platelet Count 558 K/mcL (140-400); Red Cell Distribution Width 13.3 % (11.5-14.5); Segmented Neutrophils % 76.2 %
[2017-06-01 19:06] LABS: Bilirubin,Urine Negative (Negative); Blood,Urine Negative (Negative); Clarity,Urine Cloudy (Clear); Color,Urine Dark Yellow (Yellow); Glucose,Urine (UA) Normal (Normal); Ketones,Urine 40 mg/dL (Negative); Leukocyte Esterase,Urine Negative (Negative); Nitrite,Urine Negative (Negative); PH,Urine 6.5 pH Units (5.0-8.0); Protein,Urine 30 mg/dL (Neg-Trace); Specific Gravity,Urine > 1.030 (1.010-1.025); Urobilinogen,Urine Normal (Normal)
[2017-06-01 19:11] LABS: Bacteria,Urine Moderate per hpf (None-Few); Hyaline Casts,Urine Few per lpf (None-Few); Squamous Epithelial Cell,Urine Many per lpf (None-Few)
[2017-06-01 19:12] LABS: Platelet Estimate Increased (Normal)
[2017-06-01 19:19] LABS: Alanine Aminotransferase 68 Units/L (7-52); Albumin 4.7 g/dL (3.5-5.7); Albumin/Globulin Ratio 1.5 (1.1-2.2); Alkaline Phosphatase 104 Units/L (34-104); Aspartate Amino Transferase 47 Units/L (13-39); BUN/Creatinine Ratio 23 (6-26); Bilirubin,Direct 0.2 mg/dL (0.0-0.2); Bilirubin,Indirect 0.7 mg/dL (0.0-1.2); Bilirubin,Total 0.9 mg/dL (0.3-1.0); Blood Urea Nitrogen 13 mg/dL (6-20); Calcium 9.9 mg/dL (8.6-10.3); Carbon Dioxide 27 mEq/L (23-29); Chloride 96 mEq/L (98-107); Globulin 3.2 g/dL (2.4-3.5); Glucose 117 mg/dL (70-105); Lipase 11 Units/L (11-82); Magnesium 2.1 mg/dL (1.6-2.6); Osmolality,Calculated 279 (280-300); Potassium 3.3 mEq/L (3.5-5.1); Sodium 134 mEq/L (136-145); Total Protein 7.9 g/dL (6.4-8.9); eGFR For African Americans > 60 (> 60); eGFR For Non-African Americans > 60 (> 60)
[2017-06-01 19:29] LABS: Thyroid Stimulating Hormone 1.201 mcIU/mL (0.340-5.600)
[2017-06-01] MEDS ORDERED: Aspirin 81 MG TAB.CHEW PO ONE (20:30)
[2017-06-01] MEDS ORDERED: Ondansetron 4 MG/2 ML VIAL IVP ONE (20:35)
[2017-06-01 21:04] LABS: Amphetamine Screen,Urine Negative ng/mL (Cutoff=1000); Barbiturate Screen,Urine Negative ng/mL (Cutoff=200); Benzodiazepines Screen,Urine Negative ng/mL (Cutoff=200); Cannabinoid Screen,Urine Positive ng/mL (Cutoff = 50); Cocaine Screen,Urine Negative ng/mL (Cutoff= 300); Opiate Screen,Urine Negative ng/mL (Cutoff=300); Phencyclidine Screen,Urine Negative ng/mL (Cutoff=25)
[2017-06-01] MEDS ORDERED: Naloxone 0.4 MG/ML INJ IVP PRN (21:38)
[2017-06-01] MEDS ORDERED: 0.9 % Sodium Chloride 1,000 ML IVC SCH (21:45)
[2017-06-01] MEDS ORDERED: Acetaminophen IV 1,000 MG/100 ML INFUS..BTL IVPB ONE (21:53)
--- NOTE | 2017-06-01 22:04 | Internal Med History&Physical ---
<Kojo Bobby R - Last Filed: 06/01/17 21:59> Date of Encounter: 06/01/17 Time of Encounter: 09:10 Assessment and Plan (1) Sepsis Current visit: Yes Status: Acute Meeting to SIRS criteria: tachycardia and WBC 28.7, with possible GI source of infection Chest x-ray shows no acute abnormality. CT abdomen and pelvis shows esophagitis. No PE or aortic dissection. WBC elevated to 8.7. Hypokalemia 3.3 - replaced in ED. Mild elevation of AST 47, ALT 60. Lipase normal. TSH normal. Urinalysis not concerning for source of infection. Blood cultures drawn We will continue antibiotics for now, IV fluids, symptomatic nausea medications , and pain control Qualifiers: Sepsis type: sepsis due to unspecified organism Qualified Code(s): A41.9 - Sepsis, unspecified organism (2) Esophagitis Current visit: Yes Status: Acute Continue symptomatic treatment and Protonix Consider possible EGD evaluation in the future (3) Elevated troponin Current visit: Yes Status: Acute Troponin 0.06. Palpitations and constant chest pain X3 days ECG in the ED showed sinus tachycardia with non-specific T wave changes Chest pain less likely cardiac in nature - reproducible, constant ache, nonexertional Not on heparin due to concerns of bleeding with esophagitis Continuous cardiac monitoring. Trend troponins 3. Echocardiogram tomorrow. (4) Tachycardia Current visit: Yes Status: Acute History of tachycardia on propranolol. She has not been able to take this due to vomiting. Will place her on metoprolol PRN every 6 hours for her over 120. (5) Intractable vomiting Current visit: Yes Status: Resolved Continue symptomatic treatment. NPO diet Qualifiers: Vomiting type: cyclical vomiting Nausea presence: with nausea Qualified Code(s): G43.A1 - Cyclical vomiting, intractable (6) Leukocytosis Current visit: Yes Status: Acute Continue antibiotics as above. Continue to monitor. Qualifiers: Leukocytosis type: leukemoid reaction Qualified Code(s): D72.823 - Leukemoid reaction (7) DVT prophylaxis Current visit: Yes Status: Acute Not on anticoagulation due to bleeding risk with esophagitis. Will place on SCDs. Internal Medicine - H&P: HPI Chief complaint: N/V/Abdominal pain Admitted From: Emergency Dept History of present illness: Ms. Lanier is a 36 year old female with past medical history of anxiety, depression, hypertension, presented to the emergency department with 3 day history of nausea, vomiting, and diffuse crampy/achy abdominal pain. Associated symptoms include diaphoresis, light-headedness, chills, dyspnea, non- exertional constant chest pain, palpitations, and tingling in her fingers and toes. She reports that the emesis is nonbilious, however does appear to have some specks of blood in it. She denies syncope, constipation, diarrhea, hematochezia, melena, dysuria, or hematuria. Nothing seems to improve or worsen her symptoms. She has tried some Zofran she had left over from previous prescription. She has had a decreased appetite with decreased oral intake. Denies any known sick contacts. Past Med Surg Social Fam HX - Past Medical History Medical history: no medical history Psychiatric history: anxiety, ADHD, depression - Past Surgical History Surgical History: other - Social History Smoking Status: Current every day smoker Smokeless Tobacco Status: No Alcohol use: occasionally Drug use: marijuana - Family History Father Living Status: Still Living Hx Family Cardiac Disorders: Yes ([place], Triple bypass) Hx Family Cancer: Yes (prostate) Internal Medicine - H&P: Meds Ondansetron ODT [Zofran ODT] 4 mg SL Q4HR #10 tab.rapdis 03/13/17 [Rx] Promethazine [Phenergan] 12.5 mg RC Q4HR #10 supp.rect 03/13/17 [Rx] FLUoxetine HCl [PROzac] 20 mg PO DAILY 03/16/17 [History] Propranolol [Inderal] 20 mg PO BID 03/16/17 [History] 3 Allergy/AdvReac Type Severity Reaction Status Date / Time codeine AdvReac Headache Verified 03/13/17 18:02 Penicillins AdvReac Vomiting Verified 03/13/17 18:02 All Systems PM: A 10-system review of systems was performed and is negative for pertinent findings except as documented above in the HPI. - Constitutional Vitals: Temp Pulse Resp BP Pulse Ox 98.7 F 85 16 158/102 98 06/01/17 21:33 06/01/17 21:33 06/01/17 21:33 06/01/17 21:33 06/01/17 21:37 General appearance: Present: mild distress, A&O X 3 - Head Head exam: Present: atraumatic, normocephalic - Eye Eye exam: Present: EOMI, conjuntiva pink, sclera anicteric. Absent: scleral icterus - Neck Neck exam general surgery: Present: supple, trachea midline. Absent: lymphadenopathy - Respiratory Respiratory exam: Present: CTAB. Absent: accessory muscle use, rales, rhonchi, wheezes - Cardiovascular Cardiovascular exam: Present: RRR, +S1, +S2. Absent: diastolic murmur, systolic murmur - GI/Abdominal GI/Abdominal exam: Present: normal bowel sounds, soft, tenderness (Diffuse), no peritoneal signs. Absent: distended, guarding, rebound, rigid - Extremities Exam Extremities exam: Present: warm, radial pulses palpable and symmetrical. Absent : calf tenderness, cyanotic, pedal edema - Neurological Exam Neurological exam: Present: CN II-XII intact, oriented X3, no focal deficits. Absent: motor sensory deficit - Skin Skin exam: Present: dry, intact Internal Med - H&P Results - Labs CBC & Chem 7: 06/01/17 18:09 06/01/17 18:09 <Denise Sheldon - Last Filed: 06/02/17 03:28> Date of Encounter: 06/02/17 Internal Medicine - H&P: HPI History of present illness: Ms. Lanier is a 36 year old female All Systems PM: A 10-system review of systems was performed and is negative for pertinent findings except as documented above in the HPI. - Constitutional Vitals: Temp Pulse Resp BP Pulse Ox 98.7 F 102 16 144/89 97 06/01/17 23:53 06/01/17 23:53 06/01/17 23:53 06/01/17 23:53 06/01/17 23:53 Internal Med - H&P Results - Labs CBC & Chem 7: 06/02/17 02:25 06/02/17 02:25 Labs: Short CBC 06/02/17 Range/Units 02:25 WBC 21.9 H (4.3-11.1) K/mcL Hgb 13.6 D (11.5-15.4) g/dL Hct 40.2 (35.3-44.9) % Plt Count 451 H (140-400) K/mcL Neutrophils # 15.1 H (1.6-8.9) K/mcL BMP 06/02/17 02:25 Sodium 139 Potassium 3.5 Chloride 105 Carbon Dioxide 25 BUN 11 Creatinine 0.49 L Glucose 100 Calcium 8.4 L Cardiac Enzymes 06/02/17 Range/Units 02:25 Troponin I 0.05 H* (< 0.04) ng/mL Liver Function 06/02/17 Range/Units 02:25 Total Bilirubin 0.7 (0.3-1.0) mg/dL AST 22 (13-39) Units/L ALT 42 (7-52) Units/L Alkaline Phosphatase 73 (34-104) Units/L Albumin 3.4 L (3.5-5.7) g/dL - Attending Attestation I have seen and examined this patient independently. I have discussed with resident physician Dr. Bobby regarding the management plan. Agree with the documentation.
[2017-06-01] MEDS ORDERED: OXYCODONE Oral CONC 10 MG/0.5 ML ORAL.SYG SL PRN (22:15)
[2017-06-01] MEDS ORDERED: Metoclopramide 10 MG/2 ML VIAL IVP ONE (22:49)
[2017-06-02] MEDS ORDERED: Cefepime HCl 2,000 MG in Water for inj. (sterile) 20 ML IVP SCH
[2017-06-02] MEDS: Ondansetron 4 MG/2 ML VIAL IVP PRN ×3 (02:39→16:08)
[2017-06-02 02:42] LABS: Basophils # 0.1 K/mcL (0.0-0.2); Basophils % 0.3 %; Eosinophils % 0.1 %; Hematocrit 40.2 % (35.3-44.9); Immature Granulocytes % 0.5 % (0-4); Immature Platelets 1.7 % (1.1-6.1); Lymphocytes # 4.7 K/mcL (0.6-4.6); Lymphocytes % 21.6 %; Mean Corpuscular HGB Conc 33.8 g/dL (31.6-35.5); Mean Corpuscular Hemoglobin 29.8 pg (28.0-33.3); Mean Corpuscular Volume 88.2 fL (83.0-100.0); Mean Platelet Volume 8.3 fL (9.4-12.4); Monocytes # 1.8 K/mcL (0.0-1.3); Monocytes % 8.4 %; Neutrophils # 15.1 K/mcL (1.6-8.9); Platelet Count 451 K/mcL (140-400); Red Blood Count 4.56 M/mcL (3.82-4.97); Red Cell Distribution Width 13.5 % (11.5-14.5); Segmented Neutrophils % 69.1 %
[2017-06-02] MEDS: OXYCODONE Oral CONC 10 MG/0.5 ML ORAL.SYG SL PRN (02:47)
[2017-06-02 02:51] LABS: Hemoglobin 13.6 g/dL (11.5-15.4)
[2017-06-02] MEDS ORDERED: Cefepime HCl 2,000 MG in Water for inj. (sterile) 20 ML 20 ML IVP SCH ×2 (03:00→11:00)
[2017-06-02 03:06] LABS: Alanine Aminotransferase 42 Units/L (7-52); Albumin 3.4 g/dL (3.5-5.7); Albumin/Globulin Ratio 1.5 (1.1-2.2); Alkaline Phosphatase 73 Units/L (34-104); Aspartate Amino Transferase 22 Units/L (13-39); BUN/Creatinine Ratio 22 (6-26); Bilirubin,Total 0.7 mg/dL (0.3-1.0); Blood Urea Nitrogen 11 mg/dL (6-20); Calcium 8.4 mg/dL (8.6-10.3); Carbon Dioxide 25 mEq/L (23-29); Chloride 105 mEq/L (98-107); Globulin 2.3 g/dL (2.4-3.5); Glucose 100 mg/dL (70-105); Osmolality,Calculated 287 (280-300); Potassium 3.5 mEq/L (3.5-5.1); Sodium 139 mEq/L (136-145); Total Protein 5.7 g/dL (6.4-8.9); eGFR For African Americans > 60 (> 60); eGFR For Non-African Americans > 60 (> 60)
[2017-06-02] MEDS: *HR* Metoprolol 5 MG/5 ML VIAL IVP PRN ×2 (05:25→16:08)
[2017-06-02] MEDS: *HR* Promethazine 25 MG/ML VIAL IVP PRN ×3 (05:25→18:22)
[2017-06-02] MEDS ORDERED: *HR* Heparin 5,000 UNIT/ML VIAL SQ SCH (06:00)
[2017-06-02] MEDS ORDERED: Pantoprazole 40 MG VIAL IVP SCH (09:00)
[2017-06-02] MEDS ORDERED: Aminoglycoside Consult 1 EACH MC ONE (09:22)
--- NOTE | 2017-06-02 10:41 | Cardiology Consult Note ---
Date of Encounter: 06/02/17 Time of Encounter: 10:30 Assessment and Plan (1) Elevated troponin Current Visit: Yes Status: Acute Elevated troponin in the setting of suspected sepsis, probable GI etiology. Troponin 0.06, 0.06, 0.05--suspect NSTEMI II, however ACS cannot be ruled out. Describes atypical chest pain. No acute ST/T wave abnormalities noted on ECG. Heparin not started d/t esophagitis. Continues to have nausea, vomiting. Risk factors for CAD include: tobacco use, HTN, family hx (father premature CAD , [place] in 40's). Would recommend ischemic evaluation prior to discharge once acute issues are resolved. Start ASA, statin when taking oral. Continue betablocker. Echo pending. (2) Sepsis Current Visit: Yes Status: Acute Mgmt per primary service. On IV vanco. Qualifiers: Sepsis type: sepsis due to unspecified organism Qualified Code(s): A41.9 - Sepsis, unspecified organism (3) Tobacco abuse Current Visit: Yes Status: Acute Smoking cessation counseling. Discussion w patient/family: The assessment and plan as outlined above was discussed with the patient and/or family members who expressed understanding and agreement. All questions were answered. Thank you for involving us in the care of your patient. Please call with any questions. The patient will be discussed and reviewed with Dr. Chandler; changes to be made accordingly. History of Present Illness Consult date: 06/02/17 Requesting physician: Black Cazares Consult reason: Elevated troponin Chief complaint: N/V, chest pain History of present illness: Ms. Lanier is a 36 year old female with PMHx significant for anxiety, depression , HTN, and tobacco dependence who presented to the ED with x3 day history of persistent nausea with vomiting with associated left-sided chest discomfort and palpitations. Pain reports chest discomfort has been constant over the past 4 days and is sharp. Nothing improves or worsens pain. Denies sick contact. She reports blood glucose was 50 prior to arrival. Denies previous cardiac work-up. Upon arrival to ED troponin was 0.06. WBC 28.7. CTA suggestive of esophagitis. Past Med Surg Social Fam HX - Past Medical History Attestation: Yes The following information was validated with the patient. Source: patient Medical history: hypertension Psychiatric history: anxiety, ADHD, depression - Past Surgical History Surgical History: other - Social History Smoking Status: Current every day smoker Packs per day: 0.5-1 Smokeless Tobacco Status: No Alcohol use: occasionally Drug use: marijuana - Family History Father Living Status: Still Living Hx Family Cardiac Disorders: Yes ([place], Triple bypass) Hx Family Cancer: Yes (prostate) Medications and Allergies Propranolol [Inderal] 20 mg PO BID 03/16/17 [History] FLUoxetine HCl [Fluoxetine HCl] 40 mg PO DAILY 06/02/17 [History] 3 Allergy/AdvReac Type Severity Reaction Status Date / Time codeine AdvReac Headache Verified 06/02/17 09:06 Penicillins AdvReac Vomiting Verified 06/02/17 09:06 All Systems Review: The remainder of the systems were reviewed and are negative - Cardiovascular Cardiovascular: as per HPI Physical Examination Vital Signs, Last 4 Hours Temp Pulse Resp BP Pulse Ox 06/02/17 06:46 98.4 F 69 16 159/90 97 General: Conversant, No Apparent Distress HEENT: Atraumatic, Normocephaly, Mucus Membranes Moist Cardiac: Reg Rate and Rhythm, Normal S1 and S2 Lungs: Normal Breath Sounds Neuro: Alert and responsive Abdomen: Soft Skin: No rashes noted on visualized skin Musculoskeletal: No Chest Wall Tenderness Extremities: No Edema, Normal Pulses Results 06/02/17 02:25 06/02/17 02:25 Lab Results 06/02/17 08:10 Troponin I 0.05 H* Active Medications Sodium Chloride (0.9 % Sodium Chloride) 1,000 mls @ 75 mls/hr IVC .[id number] [facility] Stop: 06/02/17 11:04 Last Admin: 06/01/17 23:12 Dose: 75 mls/hr Cefepime HCl 2,000 mg/ Sterile (Water) 20 mls @ 300 mls/hr IVP Q8H [facility] Stop: 12/02/17 11:01 Metoprolol Tartrate (Lopressor) 5 mg IVP Q6HR PRN PRN Reason: HR >120, SBP >140, or DBP >90 Stop: 12/01/17 22:14 Last Admin: 06/02/17 05:25 Dose: 5 mg Naloxone HCl (Narcan) 0.4 mg IVP Q2MIN PRN PRN Reason: SEE COMMENTS Stop: 12/01/17 21:39 Ondansetron HCl (Zofran) 4 mg IVP Q6HR PRN; Protocol PRN Reason: nausea/vomiting Stop: 12/01/17 22:49 Last Admin: 06/02/17 08:19 Dose: 4 mg Oxycodone HCl (Oxycodone Oral Conc) 5 mg SL Q6HR PRN; Protocol PRN Reason: mild-moderate pain Stop: 12/01/17 22:16 Last Admin: 06/02/17 02:47 Dose: 5 mg Oxycodone HCl (Oxycodone Oral Conc) 10 mg SL Q6HR PRN; Protocol PRN Reason: Severe Pain Stop: 12/01/17 22:16 Pantoprazole Sodium (Protonix) 40 mg IVP DAILY [facility] Stop: 12/02/17 09:01 Last Admin: 06/02/17 08:19 Dose: 40 mg Promethazine HCl (Phenergan) 12.5 mg IVP Q4HR PRN PRN Reason: Nausea And Vomiting Stop: 12/01/17 22:49 Last Admin: 06/02/17 05:25 Dose: 12.5 mg - Imaging and Cardiology Echo: pending Other Results: 12 hour tele: avg HR=70 SR. No significant event noted. - EKG Interpretation EKG results cardiology: personally reviewed Consult Discharge Plan - Plan Referrals: Karson Romero DO [Primary Care Provider] -
--- NOTE | 2017-06-02 11:34 | Gastroenterology Consult Note ---
<Brian Oliveira - Last Filed: 06/02/17 11:32> Date of Encounter: 06/02/17 Time of Encounter: 11:00 - Assessment and plan (1) Esophagitis Current Visit: Yes Status: Acute Assessment and plan: CT A/P with diffuse mural thickening involving the esophagus with a fluid- filled patulous appearance, and right adnexal cyst measuring 3.7 cm. Continue Protonix and plan for EGD today to r/o esophagitis, gastritis, duodenitis, PUD, MW tear, or AVM. (2) Sepsis Current Visit: Yes Status: Acute Assessment and plan: Management by primary team. Qualifiers: Sepsis type: sepsis due to unspecified organism Qualified Code(s): A41.9 - Sepsis, unspecified organism - Time Spent With Patient Total time spent is greater than 50% in coordination of care (as documented) at patient's floor/unit and/or counseling patient: GI History of Present Illness - Data of Consult Patient: new to practice Consult date: 06/02/17 Requesting Physician: Black Cazares MD - Consult Narrative Reason for consult: Acute esophagitis History of present illness: Ms. Lanier is a 36 year old female with PMHx of anxiety, depression, HTN who presented to the ED with 3 day history of nausea, vomiting, and diffuse crampy abdominal pain. Associated symptoms include diaphoresis, light-headedness, chills, dyspnea, non-exertional constant chest pain, palpitations, and tingling in her fingers and toes. No alleviating or aggravating factors. She reports that the emesis is nonbilious, however does appear to have some specks of blood. She denies syncope, constipation, diarrhea, hematochezia, melena, dysuria , or hematuria. She was tachycardic on admission with a WBC of 28.7. AST and ALT mildly elevated at 47 and 68 on admission now within normal limits. CT A/P with diffuse mural thickening involving the esophagus with a fluid-filled patulous appearance, and right adnexal cyst measuring 3.7 cm. Procedures: None NSAIDs: None Anticoagulation: None Past Med Surg Social Fam HX - Past Medical History Medical history: hypertension Psychiatric history: anxiety, ADHD, depression - Past Surgical History Surgical History: other - Social History Smoking Status: Current every day smoker Packs per day: 0.5-1 Smokeless Tobacco Status: No Alcohol use: occasionally Drug use: marijuana - Family History Father Living Status: Still Living Hx Family Cardiac Disorders: Yes ([place], Triple bypass) Hx Family Cancer: Yes (prostate) - Gastrointestinal Gastrointestinal: Present: as per HPI - Constitutional Constitutional: as per HPI - EENT Eyes: as per HPI Ears: Present: as per HPI Nose, mouth and throat: Present: as per HPI - Cardiovascular Cardiovascular ROS: Present: as per HPI - Respiratory Respiratory IM: Present: as per HPI - Genitourinary Genitourinary: Absent: change in color, Urinary frequency - Neurological ROS Neurological GI: Present: as per HPI - Hematologic/Lymphatic Hematologic/Lymphatic pediatric: Present: as per HPI - Musculoskeletal Musculoskeletal ROS GI: Present: as per HPI - Integumentary Integumentary GI: Present: as per HPI - Psychiatric ROS Psychiatric GI: Present: as per HPI - Endocrine Endocrine IM: Present: as per HPI - Constitutional Vitals: Temp Pulse Resp BP Pulse Ox 98.5 F 62 17 158/93 98 06/02/17 10:36 06/02/17 10:36 06/02/17 10:36 06/02/17 10:36 06/02/17 10:36 General appearance: Present: cooperative, A&O X 3, no acute distress, answers questions appropriately - Head Head exam: Present: atraumatic, normocephalic - Eye Eye exam: Present: normal appearance, sclera anicteric - ENT ENT exam: Present: mucous membranes dry - Neck Neck exam general surgery: Present: normal inspection, trachea midline - Respiratory Respiratory exam: Present: CTAB. Absent: rales, rhonchi - Cardiovascular Cardiovascular exam: Present: RRR, +S1, +S2 - GI/Abdominal GI/Abdominal exam: Present: soft, tenderness (epigastric), no peritoneal signs. Absent: distended, firm, guarding - Rectal Rectal exam: Present: deferred - Extremities Exam Extremities exam: Present: warm - Neurological Exam Neurological exam: Present: no focal deficits - Psychiatric Psychiatric exam: Present: normal affect, normal mood - Skin Skin exam: Present: dry, intact, normal color, warm Results - Labs CBC & Chem 7: 06/02/17 02:25 06/02/17 02:25 Labs: Last Result Calcium 8.4 mg/dL (8.6-10.3) L 06/02/17 02:25 Troponin I 0.05 ng/mL (< 0.04) H* 06/02/17 08:10 Urine Opiates Screen Negative ng/mL (Bziznj=648) 06/01/17 18:25 Entire Visit Hgb 13.6 g/dL (11.5-15.4) D 06/02/17 02:25 Hct 40.2 % (35.3-44.9) 06/02/17 02:25 Total Bilirubin 0.7 mg/dL (0.3-1.0) 06/02/17 02:25 AST 22 Units/L (13-39) 06/02/17 02:25 ALT 42 Units/L (7-52) 06/02/17 02:25 Lipase 11 Units/L (11-82) 06/01/17 18:09 - ABG ABG results: PT/INR, D-dimer D-Dimer 2246 ng/mLFEU (0-500) H 06/01/17 18:40 Consult Discharge Plan - Plan Referrals: Karson Romero DO [Primary Care Provider] - <Sanket Cota - Last Filed: 06/02/17 14:11> Date of Encounter: 06/02/17 Time of Encounter: 13:30 - Time Spent With Patient Total time spent is greater than 50% in coordination of care (as documented) at patient's floor/unit and/or counseling patient: GI History of Present Illness - Data of Consult Requesting Physician: Black Cazares MD - Consult Narrative History of present illness: Ms. Lanier is a 36 year old female - Constitutional Vitals: Temp Pulse Resp BP Pulse Ox 98.5 F 68 16 169/101 95 06/02/17 10:36 06/02/17 13:48 06/02/17 13:48 06/02/17 13:48 06/02/17 13:48 Results - Labs CBC & Chem 7: 06/02/17 02:25 06/02/17 02:25 Labs: Last Result Calcium 8.4 mg/dL (8.6-10.3) L 06/02/17 02:25 Troponin I 0.05 ng/mL (< 0.04) H* 06/02/17 08:10 Urine Opiates Screen Negative ng/mL (Nepkgs=839) 06/01/17 18:25 Entire Visit Hgb 13.6 g/dL (11.5-15.4) D 06/02/17 02:25 Hct 40.2 % (35.3-44.9) 06/02/17 02:25 Total Bilirubin 0.7 mg/dL (0.3-1.0) 06/02/17 02:25 AST 22 Units/L (13-39) 06/02/17 02:25 ALT 42 Units/L (7-52) 06/02/17 02:25 Lipase 11 Units/L (11-82) 06/01/17 18:09 - ABG ABG results: PT/INR, D-dimer D-Dimer 2246 ng/mLFEU (0-500) H 06/01/17 18:40 - Attending Attestation I have personally performed a face to face evaluation on this patient. I have reviewed and agree with the care plan. History and Exam by me shows:
[2017-06-02] MEDS ORDERED: *HR* Propofol 200 MG/20 ML VIAL IVP ONE ×2 (12:54→12:58)
--- NOTE | 2017-06-02 13:32 | Anesthesia Evaluation PreOp ---
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 HX Other Medical History: GERD (esophagitis noted on CT PE protocol), Other (THC use) Anesthesia History: No Prior Anesthetic Complications Alcohol Use: occasionally Drug use: marijuana Medications and Allergies Propranolol [Inderal] 20 mg PO BID 03/16/17 [History] FLUoxetine HCl [Fluoxetine HCl] 40 mg PO DAILY 06/02/17 [History] 3 Allergy/AdvReac Type Severity Reaction Status Date / Time codeine AdvReac Headache Verified 06/02/17 09:06 Penicillins AdvReac Vomiting Verified 06/02/17 09:06 - Meds/Allergy Pre-op Review Medications Reviewed: Yes Allergies Reviewed: Yes Beta Blockers on Current Med List: Yes (on propranolol at home, given metoprolol here) If Beta Blockers taken, Date/Time (Last Dose taken): 06-02-17 metoprolol 5:25 Anesthesia Results - Labs 06/02/17 02:25 06/02/17 02:25 Laboratory Tests 06/01/17 18:09 Urine Test Negative - Imaging Additional studies: 06-01-17 TTE: EV/EV echocardiogram Impressions: LVEF 60%. Normal LV wall motion, size and wall thickness. Normal right ventricular structure and function. Possibly mild prolapsing of the posterior mitral valve leaflet. There is mild to moderate mitral regurgitation. No significant TR signal to estimate RVSP. 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
--- NOTE | 2017-06-02 14:52 | Anesthesia Evaluation Post Op ---
Date of Encounter: 06/02/17 Time of Encounter: 14:50 - Vital Signs Vital Signs: Last Vital Signs Temp 98.5 F 06/02/17 10:36 Pulse 68 06/02/17 13:48 Resp 16 06/02/17 13:48 BP 169/101 06/02/17 13:48 Pulse Ox 95 06/02/17 13:48 - Lungs Lungs: Clear Ascult./Percussion - Airway Airway: Non-obstructed - Cardiovascular Regular Rate - Mental Status Mental Status: Alert & Oriented, Answers Appropriately - Pain Pain Scale: 3 - Nausea Vomiting Nausea Vomiting: Not Present - Hydration Hydration: NPO - Discharge PostOp Status: Transfer Patient to floor
--- NOTE | 2017-06-02 16:02 | Event Note ---
Date of Encounter: 06/02/17 Time of Encounter: 16:00 - Cardiology Event Note TTE completed and shows normal EF. No wall motion abnormality. Noted to have mitral valve prolapse with moderate MR. Will need serial echocardiogram in the future. Discussed with Dr. Chandler. Recommends out-pt stress test once esophagitis resolved. Out-pt f/u will be scheduled in 2 weeks.
[2017-06-02] MEDS: MetroNIDAZOLE 500 MG/100 ML 500 MG/100 ML BAG IVPB SCH (16:07)
--- NOTE | 2017-06-02 17:11 | Internal Med Progress Note ---
Date of Encounter: 06/02/17 Time of Encounter: 08:30 - Assessment and plan (1) Chest pain Current Visit: Yes Status: Acute Assessment and plan: atypical CP however she does have some non specific EKG changes and Troponins slightly elevated Card consulted for further eval 2 D Echo reviewed - showed preserved LVEF 60&, Mild MV prolapse and mild to moderate MR Need close f/u with card as an out pt.. repeat 2 D Echo in 6 months Card also suggested out pt stress test once pt's esophagitis improves Qualifiers: Qualified Code(s): R07.9 - Chest pain, unspecified (2) Elevated troponin Current Visit: Yes Status: Acute Assessment and plan: mostly demand ischemia (3) Esophagitis Current Visit: Yes Status: Acute Assessment and plan: reviewed CT of Abd, CTA of Chest GI consulted EGD showed LA grade D esophagitis suggested PPI BID + Carafate liquid (4) Sepsis Current Visit: Yes Status: Acute Assessment and plan: Does meet sepsis criteria with elveated WBC, Tachcyardia and esophagitis switched abx to Flagyl for anaerobic coverage d/c Cefepime + vanco Cont IVF Qualifiers: Sepsis type: sepsis due to unspecified organism Qualified Code(s): A41.9 - Sepsis, unspecified organism (5) Tobacco abuse Current Visit: Yes Status: Acute Assessment and plan: Counseled to quit smoking placed on nicotine patch - Subjective Interval history: Ms. Lanier is a 36 year old female with past medical history of anxiety, depression, hypertension, presented to the emergency department with 3 day history of nausea, vomiting, and diffuse crampy/achy abdominal pain. Associated symptoms include diaphoresis, light-headedness, chills, dyspnea, non- exertional constant chest pain, palpitations, and tingling in her fingers and toes. She reports that the emesis is nonbilious, however does appear to have some specks of blood in it. Pt also c/o intermittent CP from last 5 days, located sub sternally and radiating to left shoulder. Pt denied any active CP now. No more vomiting , however still has throat pain and unable to swallow well. - Constitutional Vitals: Temp Pulse Resp BP Pulse Ox 98.2 F 67 16 181/103 98 06/02/17 15:52 06/02/17 15:52 06/02/17 15:52 06/02/17 15:52 06/02/17 15:52 General appearance: Present: cooperative, A&O X 3, answers questions appropriately - Head Head exam: Present: atraumatic, normal inspection - Neck Neck exam general surgery: Present: supple - Respiratory Respiratory exam: Present: chest wall tenderness (mild), decreased breath sounds. Absent: rales, respiratory distress, rhonchi, wheezes - Cardiovascular Cardiovascular exam: Present: RRR, +S1, +S2. Absent: tachycardia - GI/Abdominal GI/Abdominal exam: Present: normal bowel sounds, soft. Absent: rebound, rigid, tenderness - Extremities Exam Extremities exam: Absent: calf tenderness, pedal edema, tenderness - Back Exam Back exam: Absent: CVA tenderness (L), CVA tenderness (R) - Neurological Exam Neurological exam: Present: alert, oriented X3 - Psychiatric Psychiatric exam: Present: normal affect, normal mood Internal Medicine: Result - Labs CBC & Chem 7: 06/02/17 02:25 06/02/17 02:25 Labs: Cardiac Enzymes 06/02/17 Range/Units 08:10 Troponin I 0.05 H* (< 0.04) ng/mL - ABG Interpretation ABG results: PT/INR, D-dimer D-Dimer 2246 ng/mLFEU (0-500) H 06/01/17 18:40 Consult Discharge Plan - Plan Referrals: Karson Romero DO [Primary Care Provider] -
[2017-06-02] MEDS ORDERED: Cefepime HCl 1,000 MG in Water for inj. (sterile) 20 ML 10 ML IVP ONE (19:14)
[2017-06-03] MEDS: Ondansetron 4 MG/2 ML VIAL IVP PRN ×2 (00:04→14:39)
[2017-06-03] MEDS: MetroNIDAZOLE 500 MG/100 ML 500 MG/100 ML BAG IVPB SCH ×2 (00:04→08:32)
[2017-06-03] MEDS: OXYCODONE Oral CONC 10 MG/0.5 ML ORAL.SYG SL PRN ×3 (00:05→15:29)
[2017-06-03 05:27] LABS: Basophils # 0.1 K/mcL (0.0-0.2); Basophils % 0.5 %; Eosinophils # 0.1 K/mcL (0.0-0.6); Eosinophils % 0.5 %; Hematocrit 39.8 % (35.3-44.9); Hemoglobin 13.2 g/dL (11.5-15.4); Immature Granulocytes % 0.5 % (0-4); Lymphocytes # 4.9 K/mcL (0.6-4.6); Lymphocytes % 27.6 %; Mean Corpuscular HGB Conc 33.2 g/dL (31.6-35.5); Mean Corpuscular Hemoglobin 29.2 pg (28.0-33.3); Mean Corpuscular Volume 88.1 fL (83.0-100.0); Mean Platelet Volume 8.8 fL (9.4-12.4); Monocytes # 1.4 K/mcL (0.0-1.3); Monocytes % 8.1 %; Neutrophils # 11.1 K/mcL (1.6-8.9); Platelet Count 404 K/mcL (140-400); Red Blood Count 4.52 M/mcL (3.82-4.97); Red Cell Distribution Width 13.2 % (11.5-14.5); Segmented Neutrophils % 62.8 %
[2017-06-03] MEDS: *HR* Promethazine 25 MG/ML VIAL IVP PRN (05:34)
[2017-06-03 05:41] LABS: BUN/Creatinine Ratio 19 (6-26); Blood Urea Nitrogen 9 mg/dL (6-20); Calcium 8.8 mg/dL (8.6-10.3); Carbon Dioxide 27 mEq/L (23-29); Chloride 104 mEq/L (98-107); Glucose 92 mg/dL (70-105); Osmolality,Calculated 284 (280-300); Potassium 3.1 mEq/L (3.5-5.1); Sodium 138 mEq/L (136-145); eGFR For African Americans > 60 (> 60); eGFR For Non-African Americans > 60 (> 60)
[2017-06-03 11:25] VITALS: BP 122/84
--- NOTE | 2017-06-03 11:53 | Discharge Summary ---
- NOTES TO OUTPATIENT PROVIDER Notes to Outpatient Provider: Patient had a right adnexal cystn <5cm. This based on recommendation does not need regular follow ups. She will need to have follow up with cardiology in about 2 weeks to get a stress test done as they recommended outpatient stress test. Stress test could not be done inpatient due to esophagitis. She is being treated empirically with flagyl to cover for GI anaerobes and any possible aspiration pneumonia Orders not resulted at time of discharge: Pending orders 06/04/17 04:00 BMP [Basic Metabolic Panel] AM 0400 Complete Blood Count [HEME] AM 0400 Magnesium AM 0400 Date of Encounter: 06/03/17 Time of Encounter: 11:51 - Discharge Diagnosis (1) Chest pain Priority: Primary Status: Acute Qualifiers: Chest pain type: unspecified Qualified Code(s): R07.9 - Chest pain, unspecified (2) Elevated troponin Priority: Primary Status: Acute (3) Esophagitis Priority: Primary Status: Acute (4) Leukocytosis Priority: Primary Status: Acute Qualifiers: Leukocytosis type: leukemoid reaction Qualified Code(s): D72.823 - Leukemoid reaction (5) Tobacco abuse Priority: Secondary Status: Acute (6) Intractable vomiting Priority: Primary Status: Resolved Qualifiers: Vomiting type: cyclical vomiting Nausea presence: with nausea Qualified Code(s): G43.A1 - Cyclical vomiting, intractable Hospital course: Ms. Lanier is a 36 year old female with past medical history of anxiety, depression, hypertension, presented to the emergency department with 3 day history of nausea, vomiting, and diffuse crampy/achy abdominal pain. Associated symptoms include diaphoresis, light-headedness, chills, dyspnea, non- exertional constant chest pain, palpitations, and tingling in her fingers and toes. She reported that the emesis is nonbilious, however does appear to have some specks of blood in it. She was admitted to the hospitalist service. She will workup in the ED including a CT of chest showed diffuse mural thickening involving the esophagus with a fluid-filled patulous appearance. This was concerning for esophagitis with dysmotility. She had a white count of 28.7 on admission. She was started on empiric antibiotics with vancomycin cefepime. Her white count did come down to 17.7. She was seen by GI and an EGD was done which showed LA grade D esophagitis. She was started on PPI twice a day as well as Carafate. While hospitalized she also had elevated troponins however there were adynamic. Cardiology saw the patient and signed off after a TTE showed no concerning findings. The echo came back with an EF of 60% with normal LV wall motion. Troponins were 0.06, 0.05, 0.05.Given the elevated white count and tachycardia with esophagitis the patient was started empirically on Flagyl for anaerobic coverage. She had initially been on cefepime and vancomycin on admission. She was discharged to finish 10 days total of oral Flagyl. She was discharged in a stable condition on 06/03/2017. - Time Spent with Patient Total time spent providing and/or coordinating discharge services: Greater than 30 minutes - Discharge Medications Prescriptions: metroNIDAZOLE [Flagyl] 500 mg PO TID #24 tablet Omeprazole [PriLOSEC] 20 mg PO BIDAC #60 capsule. Sucralfate [Carafate] 1 gm PO QIDAC #120 tablet Home Medications: Propranolol [Inderal] 20 mg PO BID 03/16/17 [History] FLUoxetine HCl [Fluoxetine HCl] 40 mg PO DAILY 06/02/17 [History] Omeprazole [PriLOSEC] 20 mg PO BIDAC #60 capsule. 06/03/17 [Rx] Sucralfate [Carafate] 1 gm PO QIDAC #120 tablet 06/03/17 [Rx] metroNIDAZOLE [Flagyl] 500 mg PO TID #24 tablet 06/03/17 [Rx] Allergies/Adverse Reactions: 3 Allergy/AdvReac Type Severity Reaction Status Date / Time codeine AdvReac Headache Verified 06/02/17 09:06 Penicillins AdvReac Vomiting Verified 06/02/17 09:06 Date of admission: 06/02/17 03:29 Primary care physician: Karson Romero DO Consults: 06/02/17 08:19 Consult to Gastroenterology [CONS] Routine Consulting Provider: Gastroenterology Katie Reason for Consult: Acute esophagitis Time Notified: 08:20 Call Completed: Yes 06/02/17 08:21 Consult to Cardiology [CONS] Routine Comment: Consulting Provider: Cardiology Katie Reason for Consult: Acute chest pain Time Notified: 08:21 Call Completed: Yes - Constitutional Vitals: Temp Pulse Resp BP Pulse Ox 98.5 F 70 15 122/84 95 06/03/17 11:21 06/03/17 11:21 06/03/17 11:21 06/03/17 11:21 06/03/17 11:21 General appearance: Present: cooperative, A&O X 3, answers questions appropriately Exam: GEN: NAD CVS: RRR. S1, S2, No m/r/g RESP: CTAB ABD: Soft, NT, ND, +BS EXT: No edema. 2+ DP. No rashes NEURO: Nonfocal - Patient Status Disposition: Home, Self-Care Overall status at discharge: patient is progressing back to baseline - Discharge Instructions Follow Up With: Karson Romero DO [Primary Care Provider] - (web request sent on 06/03/17. If you do not hear from the office in 1-2 days please call and schedule a 5-7 day hospital f/u) - Diet and Activity Activity: increase activity as tolerated Diet: advance to your usual diet
--- NOTE | 2017-06-03 23:34 | Electrocardiograph Report ---
[place] [id number] Test Date: 2017-06-02 Pat Name: Jacqueline Lanier Department: 112 Room: 2A37 Gender: Hedis Nurse: HAYDER : 1980 Requested By: Black Cazares Order Number: [id number] Reading MD: Greg Gilbert DO Measurements Intervals [place] Rate: 63 P: -35 [place]: 136 QRS: 42 QRSD: 85 T: 39 QT: 451 QTc: 458 Interpretive Statements SINUS RHYTHM WITH SINUS ARRHYTHMIA Electronically Signed On 06-03-2017 23:32:30 EDT by Greg Gilbert DO
--- NOTE | 2017-06-03 23:48 | Electrocardiograph Report ---
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
--- NOTE | 2017-06-03 23:50 | Electrocardiograph Report ---
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
--- NOTE | 2017-06-03 23:51 | Electrocardiograph Report ---
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
== END 2017-06-03 15:41 | disposition home or self-care (01) | DRG 720 ==
LOC: 2ANU 17:22 → EMEROO 17:22 → 2ANU 21:20
PROVIDERS: ADMIT Internal Medicine; ATTEND Family Medicine